=== PATIENT | female | born 1940 | race Caucasian/White ===

== ENCOUNTER 2019-09-30 05:14 | Emergency (ER) | payer OTHER ==
[~2019-09-30] VITALS: Ht 160 cm; Wt 69.9 kg
[2019-09-30 05:16] VITALS: Ht 160 cm; Wt 69.9 kg
[2019-09-30 07:01] LABS: BASOPHIL % 0.4 % (0-2); PLATELET COUNT 231 x10^3mcL (130-400); RED CELL DISTRIBUTION WIDTH 13.5 % (11.5-14.5)
[2019-09-30 07:19] LABS: UA SPECIFIC GRAVITY <=1.005 (1.005-1.035); microscopic required? YES; urine erythrocyte NEGATIVE (NEGATIVE)
[2019-09-30 07:33] LABS: AMPHETAMINE QUAL UR NONE DETECTED (See below)
[2019-09-30 07:38] LABS: ALBUMIN 3.7 g/dL (3.4-5.0); ALKALINE PHOSPHATASE 80 U/L (46-116); ALT/SGPT 30 U/L (14-59); AST/SGOT 17 U/L (15-37); BILIRUBIN TOTAL 0.4 mg/dL (0.20-1.00); CARBON DIOXIDE 28.3 mmol/L (21-32); CHLORIDE SERUM 107 mmol/L (98-107); CREATININE SERUM 0.7 mg/dL (0.6-1.0); HDL CHOLESTEROL 44 mg/dL (40-60); LIPASE 148 IU/L (73-393); POTASSIUM SERUM 3.9 mmol/L (3.5-5.1); SODIUM SERUM 143 mmol/L (136-145); T4(THYROXINE) 7.1 ug/dL (4.7-13.3); TOTAL PROTEIN, SERUM 6.9 g/dL (6.4-8.2)
[2019-09-30 07:39] LABS: CHOLESTEROL 101 mg/dL (<200)
[2019-09-30 07:43] LABS: GLUCOSE SERUM 45 mg/dL (74-106)
[2019-09-30] MEDS ORDERED: LANTI SQ ×2 (10:01→10:44)
[2019-09-30] MEDS ORDERED: JANUVIA25 M1 PO (10:01)
[2019-09-30] MEDS ORDERED: FORTAMET500 M1 PO (10:01)
[2019-09-30] MEDS ORDERED: COZAAR50 M1 PO (10:02)
[2019-09-30] MEDS ORDERED: METOPROLOL SUCC25 M2 PO (10:02)
[2019-09-30] MEDS ORDERED: LYRICA75 M1 PO (10:02)
[2019-09-30] MEDS ORDERED: TOVIAZ4 M1 PO (10:02)
[2019-09-30] MEDS ORDERED: ATORVASTATIN CA20 M1 PO (10:03)
[2019-09-30] MEDS ORDERED: ASPIRIN FOR CHI81 M1 PO (10:03)
[2019-09-30] MEDS ORDERED: HUMULIN R100 U/1 M1 SC (10:45)
[2019-09-30 16:37] VITALS: BP 134/44
== END 2019-09-30 16:37 | disposition short-term general hospital (02) ==
LOC: ED 05:14
PROVIDERS: Emergency Medicine
DX: I11.0 Hypertensive heart disease with heart failure (principal); I50.9 Heart failure, unspecified; E11.649 Type 2 diabetes mellitus with hypoglycemia without coma; I25.10 Atherosclerotic heart disease of native coronary artery without angina pectoris; Z98.890 Other specified postprocedural states
CPT/HCPCS: 36415; 82962; 83880; B4164; Q0092